=== PATIENT | female | born 1970 | race Caucasian/White ===

== ENCOUNTER 2019-09-24 01:29 | Emergency (ER) | payer BC ==
[~2019-09-24] VITALS: Ht 172.7 cm; Wt 77.1 kg
[2019-09-24 01:35] VITALS: BP_SYST 112
--- NOTE | 2019-09-24 01:45 | NUR ---
Patient to ER bed 3 to gown for evaluation. Side rails up. Report given to NEY.
--- NOTE | 2019-09-24 01:48 | NUR ---
ER at bedside examining patient.
--- NOTE | 2019-09-24 01:51 | NUR ---
Pt biba for alcohol intoxication x tonight. Joseluis called 911 due to pt having multiple episodes of emesis. Pt appears intoxicated and vommited in ER.
[2019-09-24 02:26] LABS: CALCIUM 9.2 mg/dL (8.4-11.0); CREATININE 0.91 mg/dL (0.55-1.30); POTASSIUM 4.3 mmol/L (3.5-5.1)
[2019-09-24 02:31] LABS: ALBUMIN 4.1 g/dL (3.4-4.8); TOTAL BILIRUBIN 0.5 mg/dL (0.0-1.0)
[2019-09-24 02:33] LABS: BASOPHILS # (AUTO) 0.1 K/uL (0.0-0.2); BASOPHILS % (AUTO) 0.7 % (0.0-2.0); EOSINOPHILS # (AUTO) 0.2 K/uL (0.0-0.4); EOSINOPHILS % (AUTO) 2.2 % (0.0-4.0); HEMATOCRIT 44.2 % (36-48); HEMOGLOBIN 14.6 g/dL (12.0-16.0); LYMPHOCYTES # (AUTO) 3.4 K/uL (1.0-5.5); LYMPHOCYTES % (AUTO) 32.4 % (20.5-51.5); MEAN CORPUSCULAR HEMOGLOBIN 25 pg (27-31); MEAN CORPUSCULAR HGB CONC 33 % (32-36); MEAN CORPUSCULAR VOLUME 77 fL (79.0-98.0); MONOCYTES # (AUTO) 0.7 K/uL (0.0-1.0); MONOCYTES % (AUTO) 6.8 % (1.7-9.3); NEUTROPHILS # (AUTO) 6.1 K/uL (1.8-7.7); NEUTROPHILS % (AUTO) 57.9 % (40.0-70.0); PLATELET COUNT (AUTO) 303 K/uL (130-430); RED BLOOD CELL COUNT(AUTO) 5.76 MIL/uL (4.2-6.2); WHITE BLOOD COUNT (AUTO) 10.5 K/uL (4.8-10.8)
--- NOTE | 2019-09-24 03:00 | NUR ---
pt resting symmetric chest rise and fall. No complaints at this time.
[2019-09-24 03:18] LABS: BILIRUBIN,URINE NEGATIVE (NEGATIVE); BLOOD, URINE NEGATIVE (NEGATIVE); CLARITY/URINE CLEAR (CLEAR); COLOR,URINE YELLOW (YELLOW); GLUCOSE,URINE NEGATIVE (NEGATIVE); KETONES,URINE NEGATIVE (NEGATIVE); LEUKOCYTE ESTERASE ,URINE NEGATIVE (NEGATIVE); NITRITE, URINE NEGATIVE (NEGATIVE); PH,URINE 5.5 (5.0-8.0); PROTEIN URINE NEGATIVE (NEGATIVE); UROBILINOGEN,URINE 0.2 (0.2-1.0)
[2019-09-24 03:41] LABS: BARBITURATE, URINE NEGATIVE (NEG <=200); BENZODIAZEPINE, URINE NEGATIVE (NEG <=150); CANNABINOID, URINE NEGATIVE (NEG <=50); COCAINE, URINE NEGATIVE (NEG <=150); METHAMPHETAMINES SCREEN,URINE NEGATIVE (NEG <=500); OPIATE, URINE NEGATIVE (NEG <=100); PHENCYCLIDINE SCREEN,URINE NEGATIVE (NEG <=25); UR TRICYCLIC ANTIDEPRESSANTS NEGATIVE (NEG <=300); URINE AMPHETAMINE NEGATIVE (NEG <=500); URINE METHADONE NEGATIVE (NEG <=200); URINE OXYCODONE SCREEN NEGATIVE (NEG <=100); URINE PROPOXYPHENE SCREEN NEGATIVE (NEG <=300)
--- NOTE | 2019-09-24 04:21 | NUR ---
Patient given written and verbal discharge instructions and verbalizes understanding. ER MD discussed with patient the results and treatment provided. Patient in stable condition. ID arm band removed. IV catheter removed intact and dressing applied, no active bleeding. Opportunity for questions provided and answered. Medication side effect fact sheet provided.
[2019-09-24 04:22] VITALS: BP_SYST 112
== END 2019-09-24 04:22 | disposition home or self-care (01) ==
LOC: SED 01:29
DX: F10.129 Alcohol abuse with intoxication, unspecified (principal); R40.4 Transient alteration of awareness; Y90.6 Blood alcohol level of 120-199 mg/100 ml
CPT/HCPCS: 36415; 80053; 80307; 81003; 81025; 85025; 93005; 99284; G0482

== ENCOUNTER 2021-01-02 14:53 | Inpatient (IN) | payer BC, SELFPAY ==
[~2021-01-02] VITALS: Ht 163.8 cm; Wt 79.8 kg
--- NOTE | 2021-01-02 15:00 | NUR ---
Patient to ER bed 4 to gown for evaluation. Side rails up. Report given to LAM
[2021-01-02 15:07] VITALS: BP_SYST 123
--- NOTE | 2021-01-02 15:22 | NUR ---
DR CHILDERS IN TO ASSESS
[2021-01-02] MEDS ORDERED: NACL 0.9% 1,000 ML IV ONE (15:30)
--- NOTE | 2021-01-02 15:46 | NUR ---
IV HL PLACED LT ARM, LABS SENT, EKG/CXR COMPLETED
[2021-01-02 15:49] LABS: BASOPHILS % (AUTO) 0.4 % (0.0-2.0); EOSINOPHILS # (AUTO) 0.2 K/uL (0.0-0.4); EOSINOPHILS % (AUTO) 1.8 % (0.0-4.0); HEMATOCRIT 38.4 % (36-48); HEMOGLOBIN 12.9 g/dL (12.0-16.0); LYMPHOCYTES # (AUTO) 3.3 K/uL (1.0-5.5); LYMPHOCYTES % (AUTO) 37.1 % (20.5-51.5); MEAN CORPUSCULAR HEMOGLOBIN 24 pg (27-31); MEAN CORPUSCULAR HGB CONC 34 % (32-36); MEAN CORPUSCULAR VOLUME 72 fL (79.0-98.0); MONOCYTES # (AUTO) 0.9 K/uL (0.0-1.0); MONOCYTES % (AUTO) 10.1 % (1.7-9.3); NEUTROPHILS # (AUTO) 4.6 K/uL (1.8-7.7); NEUTROPHILS % (AUTO) 50.6 % (40.0-70.0); PLATELET COUNT (AUTO) 291 K/uL (130-430); RED BLOOD CELL COUNT(AUTO) 5.32 MIL/uL (4.2-6.2); RED CELL DISTRIBUTION WIDTH 12.8 % (9.0-15.0)
--- NOTE | 2021-01-02 16:15 | NUR ---
UP AMBULATING STEADY, NO DYSPNEA, SKIN WARM AND DRY, NO DISTRESS
[2021-01-02 16:26] LABS: CALCIUM 9.6 mg/dL (8.4-11.0); CREATININE 0.6 mg/dL (0.55-1.30); POTASSIUM 3.7 mmol/L (3.5-5.1)
--- NOTE | 2021-01-02 16:27 | NUR ---
FAMILY AT BEDSIDE, SIDDHARTHA, ALERT, NO DISTRESS
[2021-01-02 16:29] LABS: ALBUMIN 3.3 g/dL (3.4-4.8); TOTAL BILIRUBIN 0.3 mg/dL (0.0-1.0)
[2021-01-02 16:51] LABS: BILIRUBIN,URINE NEGATIVE (NEGATIVE); BLOOD, URINE NEGATIVE (NEGATIVE); CLARITY/URINE CLEAR (CLEAR); COLOR,URINE YELLOW (YELLOW); GLUCOSE,URINE NEGATIVE (NEGATIVE); KETONES,URINE NEGATIVE (NEGATIVE); LEUKOCYTE ESTERASE ,URINE TRACE (NEGATIVE); NITRITE, URINE NEGATIVE (NEGATIVE); PROTEIN URINE NEGATIVE (NEGATIVE); UROBILINOGEN,URINE 0.2 (0.2-1.0)
[2021-01-02 17:21] LABS: BACTERIA,URINE FEW /HPF (None Seen); RBC,URINE 0-3 /HPF (0-3)
[2021-01-02 17:22] LABS: MUCUS,URINE 1+ /LPF (None Seen)
--- NOTE | 2021-01-02 17:56 | NUR ---
admit to tele syncope
--- NOTE | 2021-01-02 18:13 | NUR ---
OFF TO CT HEAD VIA WHEELCHAIR
[2021-01-02] MEDS ORDERED: LR 1,000 ML IV SCH (18:15)
[2021-01-02 19:48] LABS: BARBITURATE, URINE NEGATIVE (NEG <=200)
[2021-01-02 19:49] LABS: BENZODIAZEPINE, URINE NEGATIVE (NEG <=150); CANNABINOID, URINE NEGATIVE (NEG <=50); COCAINE, URINE NEGATIVE (NEG <=150); METHAMPHETAMINES SCREEN,URINE NEGATIVE (NEG <=500); OPIATE, URINE NEGATIVE (NEG <=100); PHENCYCLIDINE SCREEN,URINE NEGATIVE (NEG <=25); UR TRICYCLIC ANTIDEPRESSANTS NEGATIVE (NEG <=300); URINE AMPHETAMINE NEGATIVE (NEG <=500); URINE METHADONE NEGATIVE (NEG <=200); URINE OXYCODONE SCREEN NEGATIVE (NEG <=100); URINE PROPOXYPHENE SCREEN NEGATIVE (NEG <=300)
--- NOTE | 2021-01-02 19:50 | NUR ---
Pt AAOx4, sitting up in bed eating a hamburger with at bedside. Pt states that she is here r/t dizziness and nausea with "short windedness." She states that 2 weeks ago she fainted and hit head, then fell in kitchen 2 days ago because of muscle stiffness and her knees locking up. Pt states that she would prefer to go home rather than be admitted. Dr. Harmon notified.
--- NOTE | 2021-01-02 20:10 | NUR ---
Pt states that she does not take any routine home medications.
--- NOTE | 2021-01-02 20:16 | NUR ---
Awaiting available Tele bed.
--- NOTE | 2021-01-02 22:07 | NUR ---
Patient will be admitted to care of Dr. Pool. Admitted to Tele unit. Will go to room 101B. Belongings list completed. Complete and up to date summary report printed. SBAR report to be given at bedside with opportunity for questions.
--- NOTE | 2021-01-02 22:26 | NUR ---
ADMISSION NOTE Received patient from ER via cris, received report from VINCENZO Obrien. Patient admitted with diagnosis of Syncope. Patient oriented to hospital routine, call light, toileting and safety-patient verbalized understanding.
[2021-01-02 22:41] VITALS: BP_SYST 106
[2021-01-02] MEDS ORDERED: ACETAMINOPHEN 325 MG TABLET PO PRN (22:45)
[2021-01-02] MEDS ORDERED: ONDANSETRON HCL 4 MG/2 ML VIAL IVP PRN (22:45)
--- NOTE | 2021-01-02 22:45 | NUR ---
at bedside Dr. Pool at bedside to examine pt.
--- NOTE | 2021-01-02 23:00 | NUR ---
Initial RN notes Pt AAOx4, VSS, no s/s distress noted. Pt denies any pain or dizziness. IV saline lock L. FA 18G flushes well with NS. Call light within reach. Bed low, locked, siderails up x2. To monitor.
[2021-01-02] MEDS ORDERED: LOPERAMIDE HCL 2 MG CAPSULE PO PRN (23:30)
[2021-01-03] VITALS (8 sets, daily range): BP systolic 103–122
--- NOTE | 2021-01-03 05:48 | NUR ---
CONSULTATION PAGED/CALLED Reason for Consultation: SYNCOPE Person Who was Notified: Brittani BEGUM VIA TEXT Consulting Physician: ALICIA BUTLER Bisque Finisher Specialty: Ordering Physician: BHANU
--- NOTE | 2021-01-03 05:55 | NUR ---
CONSULTATION PAGED/CALLED Reason for Consultation: SYNCOPE Person Who was Notified: SPOKE WITH GLORY FROM [employer] . Consulting Physician: DR CUI New Accounts Clerk Specialty: CARDIO Ordering Physician: BHANU THOPRE
--- NOTE | 2021-01-03 06:30 | NUR ---
MRI checklist done.
[2021-01-03 06:54] LABS: BASOPHILS % (AUTO) 0.5 % (0.0-2.0); EOSINOPHILS # (AUTO) 0.3 K/uL (0.0-0.4); EOSINOPHILS % (AUTO) 3.7 % (0.0-4.0); HEMATOCRIT 38.1 % (36-48); HEMOGLOBIN 12.5 g/dL (12.0-16.0); LYMPHOCYTES # (AUTO) 4.3 K/uL (1.0-5.5); LYMPHOCYTES % (AUTO) 49.9 % (20.5-51.5); MEAN CORPUSCULAR HEMOGLOBIN 24 pg (27-31); MEAN CORPUSCULAR HGB CONC 33 % (32-36); MEAN CORPUSCULAR VOLUME 74 fL (79.0-98.0); MONOCYTES # (AUTO) 1.2 K/uL (0.0-1.0); MONOCYTES % (AUTO) 13.5 % (1.7-9.3); NEUTROPHILS # (AUTO) 2.8 K/uL (1.8-7.7); NEUTROPHILS % (AUTO) 32.4 % (40.0-70.0); PLATELET COUNT (AUTO) 284 K/uL (130-430); RED BLOOD CELL COUNT(AUTO) 5.18 MIL/uL (4.2-6.2); RED CELL DISTRIBUTION WIDTH 12.9 % (9.0-15.0); WHITE BLOOD COUNT (AUTO) 8.6 K/uL (4.8-10.8)
--- NOTE | 2021-01-03 09:30 | NUR ---
Patient resting comfortably in bed with and Dr. Chavez at bedside.
[2021-01-03 09:31] LABS: ALANINE AMINOTRANSFERASE 70 U/L (12-78); ANION GAP 10 (5-15); ASPARTATE AMINOTRANSFERASE 26 U/L (10-37); CALCIUM 9.8 mg/dL (8.4-11.0); CHLORIDE 106 mmol/L (98-107); CREATININE 0.55 mg/dL (0.55-1.30); GFR AFRICAN AMERICAN 149 mL/min (>90); GLUCOSE 101 mg/dL (70-99); POTASSIUM 4.4 mmol/L (3.5-5.1); SODIUM SERUM 140 mmol/L (136-145); TOTAL BILIRUBIN 0.3 mg/dL (0.0-1.0); UREA NITROGEN, BLOOD 13 mg/dL (8-21)
[2021-01-03 09:32] LABS: ALBUMIN 3.2 g/dL (3.4-4.8); FREE T4 (FREE THYROXINE) 2.4 ng/dL (0.6-1.6); LIPASE 242 U/L (73-393); THYROID STIMULATING HORMONE < 0.01 uIu/mL (0.34-4.82)
[2021-01-03 09:49] LABS: CHOLESTEROL 194 mg/dL (<200); HDL CHOLESTEROL 33 mg/dL (>55); LDL CHOLESTEROL 116 mg/dL (<100); TRIGLYCERIDES 289 mg/dL (30-150)
[2021-01-03 10:17] LABS: TOTAL IRON BIND. CAPACITY 301 ug/dL (250-450)
--- NOTE | 2021-01-03 10:40 | NUR ---
Patient ambulated to bathroom and back to bed. and field support technician at bedside.
--- NOTE | 2021-01-03 11:15 | NUR ---
Patient taken in stable condition via wheelchair for MRI brain.
--- NOTE | 2021-01-03 12:07 | NUR ---
Patient returned to unit in stable condition; at bedside.
--- NOTE | 2021-01-03 13:33 | NUR ---
Patient resting comfortably in bed with and vocational rehabilitation technician at bedside. Patient stable at this time.
--- NOTE | 2021-01-03 13:57 | NUR ---
CONSULTATION PAGED REASON FOR CONSULTATION:THYROTOXCOSIS WAS CONSULT CALED?Y PERSON WHO WAS NOTIFIEDDRDRUED: CONSULTING PHYSICIAN: GRAIN UNLOADER SPECIALTY:ENDO GRAIN UNLOADER PHONE [id number]*[phone]: REQUESTING PHYSICIAN:FOSTER CA
[2021-01-03] MEDS ORDERED: methIMAzole 5 MG TABLET PO ONE (14:00)
--- NOTE | 2021-01-03 14:16 | NUR ---
LEFT A VOICE MESSAGE RE: CONSULT FOR THYROTOXICOSIS.
--- NOTE | 2021-01-03 15:16 | NUR ---
Ordered po medication given per order. Patient stable at this time.
--- NOTE | 2021-01-03 16:30 | NUR ---
Patient stable with no distress noted and no complaint of pain.
--- NOTE | 2021-01-03 18:30 | NUR ---
Patient stable throughout shift.
--- NOTE | 2021-01-03 20:15 | NUR ---
DR. VILLEDA-SAYED PATIENT SEEN BY DR. VILLEDA-SAYED WITH NEW ORDERS. WILL CONTINUE TO MONITOR.
[2021-01-03] MEDS ORDERED: methIMAzole 5 MG TABLET PO SCH (21:00)
[2021-01-03] MEDS: METOPROLOL SUCCINATE 25 MG TAB.SR.24H (TOPROL XL) PO SCH (22:12)
[2021-01-04] VITALS: BP_SYST 107
[2021-01-04 08:00] VITALS: BP_SYST 96
--- NOTE | 2021-01-04 08:00 | NUR ---
Initial Note Patient asleep, wakes easily to verbal stimuli. Oriented x 4. Involuntary trembling noted; patient reports trembling began prior to admission. No dizziness reported. Denies pain, no acute distress. Low blood pressure, Dr. Chavez made aware. Placed call light in reach, encouraged to call.
[2021-01-04 10:39] LABS: FREE T4 (FREE THYROXINE) 2.4 ng/dl (0.8-1.5); THYROID STIMULATING HORMONE < 0.01 uIu/mL (0.36-3.74)
[2021-01-04 12:00] VITALS: BP_SYST 101
--- NOTE | 2021-01-04 12:00 | NUR ---
Notes Patient awake and alert, spouse at bedside. No pain or acute distress noted. No dizziness noted. Patient educated on getting up slowly out of bed to ambulate, instructed to call for assistance. Call light placed within reach, bed in lowest position. Encouraged to call.
[2021-01-04 16:00] VITALS: BP_SYST 133
--- NOTE | 2021-01-04 16:00 | NUR ---
Notes Patient ambulating back from restroom, crying and reports diagnosis of [place]'s disease. Provided therapeutic communication and encouraged expression of feelings. Patient denies pain, no distress noted. Call light placed in reach, encouraged to call.
--- NOTE | 2021-01-04 19:01 | NUR ---
Closing Note Patient resting in bed with spouse at bedside. Reports feeling better, has support system to reach out to. No pain or distress noted. Call light in reach, bed in lowest position. Will endorse to night nurse.
[2021-01-04 20:00] VITALS: BP_SYST 119
[2021-01-04] MEDS: METOPROLOL SUCCINATE 25 MG TAB.SR.24H (TOPROL XL) PO SCH (21:31)
[2021-01-05] VITALS (7 sets, daily range): BP systolic 96–121
--- NOTE | 2021-01-05 08:00 | NUR ---
Initial Note Patient resting in bed watching TV. Oriented x 4. No pain or distress noted. Able to ambulate without assist. Denies anxiety and dizziness. Call light within reach and bed in lowest position, encouraged to call.
--- NOTE | 2021-01-05 15:00 | NUR ---
MD Rounds Dr. Pool at bedside.
[2021-01-05] MEDS ORDERED: MILK OF MAGNESIA 30 ML UDC PO PRN (16:30)
[2021-01-05] MEDS ORDERED: BISACODYL 10 MG/SUPPOSITORY RC PRN (16:30)
[2021-01-05] MEDS ORDERED: BISACODYL 5 MG TABLET.DR (DULCOLAX) PO PRN ×2 (16:30→16:34)
--- NOTE | 2021-01-05 19:30 | NUR ---
CHANGE OF SHIFT; ENDORSED BY DAY SHIFT. NO ACUTE DISTRESS. CALL LIGHT WITININ ADRIENNE.
--- NOTE | 2021-01-05 19:36 | NUR ---
Closing Note Patient awake and resting with family at bedside. No signs or symptoms of pain or distress. Denies feeling dizzy or lightheaded. Call light and bedside table in reach, bed in lowest position. Endorsed to night nurse.
[2021-01-05] MEDS: METOPROLOL SUCCINATE 25 MG TAB.SR.24H (TOPROL XL) PO SCH (21:00)
[2021-01-05] MEDS: DOCUSATE SODIUM 250 MG CAPSULE PO SCH (21:00)
--- NOTE | 2021-01-05 21:00 | NUR ---
NOTES; pt. checked. vs checked. due medications given. IV lock on left ar, on library monitor and shows sinus rhythm.
--- NOTE | 2021-01-06 00:30 | NUR ---
NOTES: pt. still awake, ambulate to the restroom, had some loose stool per pt. VS rechecked.
[2021-01-06 00:31] VITALS: BP_SYST 93
[2021-01-06 01:00] VITALS: BP_SYST 106; BP_SYST 108; BP_SYST 115
--- NOTE | 2021-01-06 03:45 | NUR ---
NOTES: pt. sleeping, no distress. call light at bedside. continue to monitor.
--- NOTE | 2021-01-06 05:59 | NUR ---
NOTES: awakened to replace battery on tele box. went back to sleep after.
--- NOTE | 2021-01-06 06:40 | NUR ---
CLOSING NOTES; pt. remain sleeping. no complaints noted. repositioned self for comfort. IV lock patent. needs attended. bed in low position. for further care and assistance. will endorse to incoming shift. call light within reach.
[2021-01-06] MEDS: DOCUSATE SODIUM 250 MG CAPSULE PO SCH ×2 (09:00→20:34)
[2021-01-06 11:22] VITALS: BP_SYST 107
--- NOTE | 2021-01-06 14:08 | NUR ---
DISCHARGE SPOKE WITH DR. SCOTT, OK TO DISCHARGE PATIENT. HAVE PATIENT FOLLOW UP WITH HIM AT HIS OFFICE AFTER HAVING SCAN DONE. DR SCOTT'S OFFICE NUMBER IS [phone]
[2021-01-06 15:30] VITALS: BP_SYST 99
[2021-01-06 20:00] VITALS: BP_SYST 105; BP_SYST 106
[2021-01-06] MEDS: METOPROLOL SUCCINATE 25 MG TAB.SR.24H (TOPROL XL) PO SCH (20:31)
[2021-01-07 00:08] VITALS: BP_SYST 105
[2021-01-07 07:50] VITALS: BP_SYST 112
--- NOTE | 2021-01-07 07:50 | NUR ---
INITIAL ROUNDS Received pt AAOx4, no s/s resp distress, no c/o pain or discomfort. Plan of care for the day reviewed with pt-she verbalized her understanding. Pain management, skin and safety discussed-teach back done. Call light within reach.
[2021-01-07] MEDS: DOCUSATE SODIUM 250 MG CAPSULE PO SCH ×2 (09:38→20:25)
[2021-01-07 13:24] VITALS: BP_SYST 110
--- NOTE | 2021-01-07 13:55 | NUR ---
LINDA/ Pt sitting up in bed watching television with no s/s resp distress, no c/o pain, no c/o dizziness or lightheadedness. Pt seen by Dr. Pool,new labs ordered for tomorrow. Needs met, call light within reach.
[2021-01-07 15:26] VITALS: BP_SYST 111
--- NOTE | 2021-01-07 19:00 | NUR ---
PT IN BED AWAKE. PT AOX4 ABLE TO MAKE NEEDS KNOWN. RR EVEN AND UNLABORED ON RA. PT DENIES PAIN AT THIS TIME. CALL LIGHT WITHIN REACH. BED RAILS UP X2. WILL CONTINUE TO MONITOR.
--- NOTE | 2021-01-07 19:30 | NUR ---
CLOSING NOTE Pt sitting up in bed visiting with her friend, no c/o pain or discomfort, no s/s resp distress. Needs met, call light within reach.
[2021-01-07 20:23] VITALS: BP_SYST 105
[2021-01-07] MEDS: METOPROLOL SUCCINATE 25 MG TAB.SR.24H (TOPROL XL) PO SCH (20:26)
[2021-01-07 23:27] VITALS: BP_SYST 115
--- NOTE | 2021-01-08 | NUR ---
PT IN BED AWAKE. PT NPO FOR THYROID SCAN IN AM. PT EDUCATED ON BEING NPO. WILL CONTINUE TO MONITOR.
[2021-01-08 00:45] VITALS: BP_SYST 108
--- NOTE | 2021-01-08 07:23 | NUR ---
Endorsed care to day rn.
[2021-01-08 08:00] VITALS: BP_SYST 115
[2021-01-08] MEDS: DOCUSATE SODIUM 250 MG CAPSULE PO SCH ×2 (09:00→20:47)
--- NOTE | 2021-01-08 09:40 | NUR ---
Opening note Patient is resting in bed, awake and watching t.v. / using her cell phone. No distress and nonlabored breathing on room air. IV to LFA is SL and patent. Bed is locked in lowest position side rails up 2x, and call light w/in reach. Updated board and reviewed plan of care.
[2021-01-08 12:00] VITALS: BP_SYST 110
[2021-01-08 16:00] VITALS: BP_SYST 112
[2021-01-08 20:00] VITALS: BP_SYST 107
[2021-01-08] MEDS: METOPROLOL SUCCINATE 25 MG TAB.SR.24H (TOPROL XL) PO SCH (20:47)
--- NOTE | 2021-01-08 20:53 | NUR ---
Meds Scheduled medications given. Reviewed side effects (Metoprolol - dizziness, call for help if need stand and light headed) and she verbalized understanding. No further needs.
[2021-01-09 00:20] VITALS: BP_SYST 106
--- NOTE | 2021-01-09 00:20 | NUR ---
rounds, V/S Patient was momentarily awakened for V/S which are stable, she denies pain. She is aware of part 2 of her thyroid scan test and is aware of food restriction (no fish). She has no further needs.
--- NOTE | 2021-01-09 03:07 | NUR ---
sleeping Patient is sleeping, no distress, symmetrical rise and fall of chest noted.
[2021-01-09 06:45] VITALS: BP_SYST 106; BP_SYST 111; BP_SYST 112; BP_SYST 117
--- NOTE | 2021-01-09 07:00 | NUR ---
closing note Patient is awake, sitting on bed, no distress. Needs met throughout shift will endorse care.
--- NOTE | 2021-01-09 07:30 | NUR ---
RN OPENING NOTE PATIENT IS AWAKE AND ALERT WALKING AROUND IN ROOM. REPORT WAS ENDORSED BY NIGHT NURSE. PATIENT EDUCATED GAMING DIRECTOR LIGHT FOR ASSISTANCE, CALL LIGHT IS WITH HER. SPOUSE IS AT BED SIDE. PATIENT HAS NO COMPLAINTS AT THIS TIME.
[2021-01-09 08:07] VITALS: BP_SYST 120
[2021-01-09] MEDS: DOCUSATE SODIUM 250 MG CAPSULE PO SCH (08:12)
[2021-01-09] MEDS ORDERED: methIMAzole 5 MG TABLET PO ONE (10:15)
--- NOTE | 2021-01-09 11:30 | NUR ---
medication Patients scheduled medication given per order patient tolerated well. patient has no other need at this time. call light is with her, no other needs at this time. dr. caballero is at nurses station.
[2021-01-09 11:57] VITALS: BP_SYST 100; BP_SYST 113
--- NOTE | 2021-01-09 12:50 | NUR ---
DISCHARGE PATIENT DISCHARGED PER ORDER. PATIENT IS AWAKE AND ALERT,SPOUSE AT BEDSIDE. PATIENT EDUCATED ON PAPER WORK WITH NO FURTHER QUESTIONS. PRESCRIPTION GIVEN TO PATIENT. IV CATHETER REMOVED CATHETER INTACT APPLIED GAUZE AND TAPE AND INSERTION SITE. ID BAND REMOVED. PATIENT HAS ALL OF BELONGINGS. PATIENT WHEELED VIA WHEELCHAIR TO SPOUSES CAR. NO THER NEEDS A THIS TIME.
[2021-01-09] MEDS ORDERED: methIMAzole 5 MG TABLET PO SCH (21:00)
== END 2021-01-09 12:50 | disposition home or self-care (01) | DRG 312 ==
LOC: SED 14:53 → STU 18:05 → SMU 01-06 08:51 → STU 01-06 08:52 → SMU 01-08 10:18
PROVIDERS: ADMIT Internal Medicine; ATTEND Internal Medicine
DX: I95.1 Orthostatic hypotension (principal); E27.40 Unspecified adrenocortical insufficiency; E05.00 Thyrotoxicosis with diffuse goiter without thyrotoxic crisis or storm; F41.9 Anxiety disorder, unspecified; F17.210 Nicotine dependence, cigarettes, uncomplicated; E06.9 Thyroiditis, unspecified; Z86.16 Personal history of COVID-19; Z79.899 Other long term (current) drug therapy
CPT/HCPCS: 36415; 70450-TC; 70551; 71045; 76376; 76536-TC; 76770; 78012; 80053; 80061; 80307; 81000; 82024; 82272; 82306; 82533; 82550; 82607; 83540; 83550; 83690; 84439; 84443; 84484; 85025; 85379; 87086; 93005; 93306; 93880; 95816; 96360; 99285; A9516; G0378

== ENCOUNTER 2023-03-02 11:10 | Emergency (ER) | payer SELFPAY ==
[~2023-03-02] VITALS: Ht 162.6 cm; Wt 77.1 kg
[2023-03-02 11:20] VITALS: BP_SYST 121; PULSE 72; RESP 22; TEMP 97; O2SAT 100
[2023-03-02 13:16] LABS: BASOPHILS # (AUTO) 0.1 K/uL (0.0-0.2); BASOPHILS % (AUTO) 0.5 % (0.0-2.0); EOSINOPHILS % (AUTO) 0.2 % (0.0-4.0); LYMPHOCYTES # (AUTO) 2.1 K/uL (1.0-5.5); LYMPHOCYTES % (AUTO) 13.2 % (20.5-51.5); MEAN CORPUSCULAR HEMOGLOBIN 24 pg (27-31); MEAN CORPUSCULAR HGB CONC 33 % (32-36); MEAN CORPUSCULAR VOLUME 74 fL (79.0-98.0); MONOCYTES # (AUTO) 1.1 K/uL (0.0-1.0); MONOCYTES % (AUTO) 6.7 % (1.7-9.3); NEUTROPHILS # (AUTO) 12.4 K/uL (1.8-7.7); NEUTROPHILS % (AUTO) 79.4 % (40.0-70.0); PLATELET COUNT (AUTO) 335 K/uL (130-430); WHITE BLOOD COUNT (AUTO) 15.7 K/uL (4.8-10.8)
[2023-03-02 13:23] LABS: CALCIUM 9.5 mg/dL (8.4-11.0); CREATININE 0.73 mg/dL (0.55-1.30)
[2023-03-02 13:37] LABS: THYROID STIMULATING HORMONE 0.72 uIu/mL (0.34-4.82)
[2023-03-02] MEDS ORDERED: IBUP-1969 PO (13:52)
[2023-03-02 14:01] VITALS: BP_SYST 121; PULSE 72; RESP 22; TEMP 97; O2SAT 100
== END 2023-03-02 14:04 | disposition home or self-care (01) ==
LOC: SED 11:10
DX: M54.30 Sciatica, unspecified side (principal); M25.551 Pain in right hip; R20.2 Paresthesia of skin; R53.1 Weakness; Z79.899 Other long term (current) drug therapy
CPT/HCPCS: 36415; 73502; 80048; 84443; 85025; 93005; 99285